=== PATIENT | male | born 1965 | race Caucasian/White ===

== ENCOUNTER 2018-06-09 16:12 | Inpatient (IN) ==
[2018-06-09] MEDS ORDERED: Isovue-370 500 ML INFUS..BTL IV ONE (16:17)
--- NOTE | 2018-06-09 16:17 | Urgent Care Visit Notes ---
Disposition Clinical Impression: Atelectasis, right, Pneumonia Disposition: Still a Patient Condition: Fair Referrals: Aleena Robles CNP [Primary Care Provider] - History of Present Illness - General Stated Complaint: SHUBHAM Time Seen by Provider: 06/09/18 16:15 - History of Present Illness HPI Narrative: 52 YO M complaining of right sided chest pain with history of abdominal surgery 3 days ago. He rates the pain as a 10/10 located in the right thorax and focal. He is SOB with pleuritic chest pain. Does not have lower extremity pain or asymmetrical swelling. Feels hot. Pt complaint: chest pain Onset (ago): hour(s) Duration: constant Onset: during rest, during exertion Pain Location: right chest Severity: severe Severity scale (1-10): 10 Quality: sharp Pain Radiation: none Improves with: nothing Worsens with: inspiration, movement Context: recent surgery - Related Data Previous Rx's Medication Instructions Recorded predniSONE [PredniSONE] 40 mg PO DAILY 4 Days tablet 09/15/16 Allergies Allergy/AdvReac Type Severity Reaction Status Date / Time No Known Allergies Allergy Verified 06/09/18 16:26 Chest Pain PMH - Past Medical History Medical history: Reports: COPD, hyperlipidemia, hypertension Psychiatric history: Reports: anxiety - Social History Smoking Status: Current every day smoker Alcohol use: Reports: none Drug use: Reports: none, marijuana Physical Exam - Chest Chest inspection: Present: normal inspection - Respiratory Respiratory exam: Present: other (Right sided d) - Expanded Respiratory Exam Location: decreased breath sounds: Right - Cardiovascular Cardiovascular exam: Present: regular rate, normal rhythm, normal heart sounds - Abdominal Exam Abdominal exam: Present: soft - Expanded Lower Extremity Exam Upper leg exam: Absent: tenderness, swelling Lower leg exam: Present: dislocation. Absent: tenderness, swelling - Neurological Exam Neurological exam: Present: alert, oriented X3 - Psychiatric Psychiatric exam: Present: normal affect, normal mood Chest Pain - Lab Data Result diagrams: 06/09/18 16:29 06/09/18 16:29 - EKG Data EKG shows normal: sinus rhythm, axis, intervals, QRS complexes, ST-T waves Course Course Narrative: 52 YO M presenting with R sided chest pain, SOB, temp 100, and recent surgery. Concerned for PE - immediate CTA awaiting results. Patient in 10/10 pain give 50 fentanyl. - Reevaluation(s) Reevaluation #1: Patient still in pain, CTA still pending, will give patient additional 50 fentanyl. Reevaluation #2: Chest CT returned ateletasis vs pneumonia in R lower lobe. Patient in a lot of pain, elevated WBCs, lung pathology, elevated temperature. Will consult hospitalists to admit. Reevaluation #3: Hospitalist has not called back, will sign out to night team to continue trying to readmit.
--- NOTE | 2018-06-09 16:19 | Emergency Department Note ---
Disposition Clinical Impression: Atelectasis, right, Pneumonia Disposition: Still a Patient Condition: Fair Referrals: Aleena Robles CNP [Primary Care Provider] - General Adult HPI - General Stated complaint: SHUBHAM Time Seen by Provider: 06/09/18 16:15 - Related Data Allergies Allergy/AdvReac Type Severity Reaction Status Date / Time No Known Allergies Allergy Verified 06/09/18 16:26 Past Medical History - Past Medical History Medical history: Reports: COPD, hyperlipidemia, hypertension Psychiatric history: Reports: anxiety - Social History Smoking Status: Current every day smoker Smokeless Tobacco Status: No Alcohol use: Reports: none Drug use: Reports: none, marijuana Course Vital Signs Temperature 100.1 F H 06/09/18 16:22 Pulse Rate 73 06/09/18 16:22 Respiratory Rate 16 06/09/18 16:22 Blood Pressure 123/68 06/09/18 16:22 O2 Sat by Pulse Oximetry 92 06/09/18 16:22 Temperature 100.1 F H 06/09/18 16:22 Pulse Rate 73 06/09/18 16:22 Respiratory Rate 16 06/09/18 16:22 Blood Pressure 123/68 06/09/18 16:22 O2 Sat by Pulse Oximetry 92 06/09/18 16:22 Oxygen Delivery Oxygen Delivery Nasal Cannula Medical Decision Making - Lab Data Result diagrams: 06/09/18 16:29 06/09/18 16:29 Lab Results 06/09/18 06/09/18 06/09/18 Range/Units 16:29 16:29 16:29 WBC 20.9 H (4.3-11.1) K/mcL RBC 4.42 (4.19-5.50) M/mcL Hgb 13.5 (12.9-16.9) g/dL Hct 40.0 (37.5-50.1) % MCV 90.5 (83.0-100.0) fL MCH 30.5 (28.0-33.3) pg MCHC 33.8 (31.6-35.5) g/dL RDW 13.3 (11.5-14.5) % Plt Count 268 (140-400) K/mcL MPV 8.7 L (9.4-12.4) fL Immature Gran % 0.5 (0-4) % Seg Neutrophils % 85.0 % Lymphocytes % 6.7 % Monocytes % 6.4 % Eosinophils % 1.2 % Basophils % 0.2 % Neutrophils # 17.8 H (1.6-8.9) K/mcL Lymphocytes # 1.4 (0.6-4.6) K/mcL Monocytes # 1.3 (0.0-1.3) K/mcL Eosinophils # 0.3 (0.0-0.6) K/mcL Basophils # 0.1 (0.0-0.2) K/mcL PT 14.1 H (9.4-12.1) Seconds INR 1.3 Heparin Anti-Xa, Unfract (0.30-0.70) IU/mL Sodium 136 (136-145) mEq/L Potassium 4.1 (3.5-5.1) mEq/L Chloride 104 (98-107) mEq/L Carbon Dioxide 24 (23-29) mEq/L BUN 17 (6-20) mg/dL Creatinine 0.81 (0.70-1.30) mg/dL Est GFR ( Amer) > 60 (> 60) Est GFR (Non-Af Amer) > 60 (> 60) BUN/Creatinine Ratio 21 (6-26) Glucose 100 (70-105) mg/dL Calculated Osmolality 284 (280-300) Calcium 9.5 (8.6-10.3) mg/dL Total Bilirubin 0.7 (0.3-1.0) mg/dL AST 15 (13-39) Units/L ALT 21 (7-52) Units/L Alkaline Phosphatase 97 (34-104) Units/L Troponin I < 0.03 (< 0.04) ng/mL B-Natriuretic Peptide (Less than 100) pg/mL Serum Total Protein 6.7 (6.4-8.9) g/dL Albumin 3.9 (3.5-5.7) g/dL Globulin 2.8 (2.4-3.5) g/dL Albumin/Globulin Ratio 1.4 (1.1-2.2) 06/09/18 06/09/18 Range/Units 16:29 16:29 WBC (4.3-11.1) K/mcL RBC (4.19-5.50) M/mcL Hgb (12.9-16.9) g/dL Hct (37.5-50.1) % MCV (83.0-100.0) fL MCH (28.0-33.3) pg MCHC (31.6-35.5) g/dL RDW (11.5-14.5) % Plt Count (140-400) K/mcL MPV (9.4-12.4) fL Immature Gran % (0-4) % Seg Neutrophils % % Lymphocytes % % Monocytes % % Eosinophils % % Basophils % % Neutrophils # (1.6-8.9) K/mcL Lymphocytes # (0.6-4.6) K/mcL Monocytes # (0.0-1.3) K/mcL Eosinophils # (0.0-0.6) K/mcL Basophils # (0.0-0.2) K/mcL PT (9.4-12.1) Seconds INR Heparin Anti-Xa, Unfract 0.06 L (0.30-0.70) IU/mL Sodium (136-145) mEq/L Potassium (3.5-5.1) mEq/L Chloride (98-107) mEq/L Carbon Dioxide (23-29) mEq/L BUN (6-20) mg/dL Creatinine (0.70-1.30) mg/dL Est GFR ( Amer) (> 60) Est GFR (Non-Af Amer) (> 60) BUN/Creatinine Ratio (6-26) Glucose (70-105) mg/dL Calculated Osmolality (280-300) Calcium (8.6-10.3) mg/dL Total Bilirubin (0.3-1.0) mg/dL AST (13-39) Units/L ALT (7-52) Units/L Alkaline Phosphatase (34-104) Units/L Troponin I (< 0.04) ng/mL B-Natriuretic Peptide 75 (Less than 100) pg/mL Serum Total Protein (6.4-8.9) g/dL Albumin (3.5-5.7) g/dL Globulin (2.4-3.5) g/dL Albumin/Globulin Ratio (1.1-2.2) Attestation Statement - Attestation Attestation: I examined this patient and my medical decision-making was reviewed with the Resident Physician. I agree with the documented findings, disposition and treatment plan as described except to the extent set forth below. [id number] time provided Patient arrives by EMS complaining of dyspnea and some right-sided chest discomfort. He is oxygen dependent at night. Recently underwent surgical repair of a bowel obstruction secondary to hernia. Patient appears mildly dyspneic on exam but otherwise in no acute distress. He was evaluated in conjunction with the resident physician Dr. Camilo 18:29: Patient has a leukocytosis of 20,000. This is compared to a leukocytosis of 19,000 about a week ago. His temperatures 100.1. CT chest shows atelectasis versus possible pneumonia to right lung base. The patient continues to be symptomatic so I favor admitting the patient for broad-spectrum antibiotics
[2018-06-09] MEDS ORDERED: *HR* FentaNYL (PF) 100 MCG/2 ML VIAL IVP ONE ×4 (16:27→22:23)
[2018-06-09 16:45] LABS: Basophils # 0.1 K/mcL (0.0-0.2); Basophils % 0.2 %; Eosinophils # 0.3 K/mcL (0.0-0.6); Eosinophils % 1.2 %; Hemoglobin 13.5 g/dL (12.9-16.9); Immature Granulocytes % 0.5 % (0-4); Lymphocytes # 1.4 K/mcL (0.6-4.6); Lymphocytes % 6.7 %; Mean Corpuscular HGB Conc 33.8 g/dL (31.6-35.5); Mean Corpuscular Hemoglobin 30.5 pg (28.0-33.3); Mean Corpuscular Volume 90.5 fL (83.0-100.0); Mean Platelet Volume 8.7 fL (9.4-12.4); Monocytes # 1.3 K/mcL (0.0-1.3); Monocytes % 6.4 %; Neutrophils # 17.8 K/mcL (1.6-8.9); Platelet Count 268 K/mcL (140-400); Red Blood Count 4.42 M/mcL (4.19-5.50); Red Cell Distribution Width 13.3 % (11.5-14.5)
[2018-06-09 16:49] LABS: INR 1.3; Prothrombin Time 14.1 Seconds (9.4-12.1)
[2018-06-09 17:11] LABS: Alanine Aminotransferase 21 Units/L (7-52); Albumin 3.9 g/dL (3.5-5.7); Albumin/Globulin Ratio 1.4 (1.1-2.2); Alkaline Phosphatase 97 Units/L (34-104); Aspartate Amino Transferase 15 Units/L (13-39); BUN/Creatinine Ratio 21 (6-26); Bilirubin,Total 0.7 mg/dL (0.3-1.0); Blood Urea Nitrogen 17 mg/dL (6-20); Calcium 9.5 mg/dL (8.6-10.3); Carbon Dioxide 24 mEq/L (23-29); Chloride 104 mEq/L (98-107); Globulin 2.8 g/dL (2.4-3.5); Glucose 100 mg/dL (70-105); Osmolality,Calculated 284 (280-300); Potassium 4.1 mEq/L (3.5-5.1); Sodium 136 mEq/L (136-145); Total Protein 6.7 g/dL (6.4-8.9); Troponin I < 0.03 ng/mL (< 0.04); eGFR For Non-African Americans > 60 (> 60)
[2018-06-09] MEDS ORDERED: Piperacillin/Tazobactam 3.375 GM in 0.9 % Sodium Chloride Mini Bag 100 ML IVPB ONE (18:30)
[2018-06-09] MEDS ORDERED: Levofloxacin 500 MG/100 ML 500 MG/100 ML BAG IVPB ONE (18:30)
[2018-06-09] MEDS ORDERED: *HR* OxyCODONE/APAP 5/325 TABLET PO ONE (19:06)
--- NOTE | 2018-06-09 20:04 | Emergency Department Note ---
Disposition Clinical Impression: Atelectasis, right Pneumonia Qualifiers: Pneumonia type: due to unspecified organism Laterality: right Lung location: lower lobe of lung Qualified Code(s): J18.1 - Lobar pneumonia, unspecified organism Disposition: Admitted As Inpatient Condition: Fair Time of Disposition: 20:07 General Adult HPI - General Chief complaint: ED Shortness of Breath/Dyspnea Stated complaint: SHUBHAM Time Seen by Provider: 06/09/18 16:15 Source: EMS Mode of arrival: ambulatory Limitations: no limitations Nursing Notes Reviewed: Yes Vital Signs Reviewed: Yes - History of Present Illness Pain Scale: 10 - Related Data Home Medications Medication Instructions Recorded Confirmed Albuterol Sulfate [Ventolin Hfa] 2 puff IH Q4H PRN 06/09/18 06/09/18 Atenolol 100 mg PO DAILY 06/09/18 06/09/18 Atorvastatin Calcium 80 mg PO HS 06/09/18 06/09/18 Docusate Sodium [Stool Softener] 100 mg PO DAILY PRN 06/09/18 06/09/18 Fluticasone/Vilanterol [Breo 1 puff IH DAILY 06/09/18 06/09/18 Ellipta 100-25 Mcg INH] Gabapentin [Neurontin] 100 mg PO TID 06/09/18 06/09/18 Metformin HCl 500 mg PO BID 06/09/18 06/09/18 Nitroglycerin [Nitrostat] 0.4 mg SL Q5MIN PRN 06/09/18 06/09/18 OxyCODONE Immed Rel [Roxicodone 10 10 mg PO Q6H PRN 06/09/18 06/09/18 MG] PARoxetine HCl [Paroxetine HCl] 40 mg PO DAILY 06/09/18 06/09/18 traZODone [TraZODone] 50 mg PO HS 06/09/18 06/09/18 Allergies Allergy/AdvReac Type Severity Reaction Status Date / Time No Known Allergies Allergy Verified 06/09/18 16:26 Past Medical History - Past Medical History Medical history: Reports: COPD, hyperlipidemia, hypertension Psychiatric history: Reports: anxiety - Social History Smoking Status: Current every day smoker Smokeless Tobacco Status: No Alcohol use: Reports: none Drug use: Reports: none, marijuana Physical Exam - General General appearance: alert Course Course Narrative: Patient signed out to me by the team physician Dr. Mcleod. Patient pending admission for hospital-acquired pneumonia after having a umbilical incarcerated hernia with bowel obstruction surgery done at [facility] one week ago. Upon examination, he does have left-sided base crackles in the lung and is very symptomatic with pleurisy. Patient was started on vancomycin, Zosyn, Levaquin. Patient's vital signs are stable. I discussed with the hospitalist Dr. Aviles who has accepted patient for admission. He would like a set of blood cultures ordered. Vital Signs Temperature 100.1 F H 06/09/18 16:22 Pulse Rate 73 06/09/18 16:22 Respiratory Rate 16 06/09/18 16:22 Blood Pressure 123/68 06/09/18 16:22 O2 Sat by Pulse Oximetry 92 06/09/18 16:22 Temperature 100.1 F H 06/09/18 16:22 Pulse Rate 68 06/09/18 22:48 Respiratory Rate 16 06/09/18 22:48 Blood Pressure 135/69 06/09/18 22:48 O2 Sat by Pulse Oximetry 90 06/09/18 22:48 Oxygen Delivery Oxygen Delivery Nasal Cannula Medical Decision Making - Medical Records Medical records reviewed: Yes I reviewed the patient's medical records. - Lab Data Lab results reviewed: Yes I reviewed the patient's lab results. Result diagrams: 06/09/18 16:29 06/09/18 16:29 Lab Results 06/09/18 06/09/18 06/09/18 Range/Units 16:29 16:29 16:29 WBC 20.9 H (4.3-11.1) K/mcL RBC 4.42 (4.19-5.50) M/mcL Hgb 13.5 (12.9-16.9) g/dL Hct 40.0 (37.5-50.1) % MCV 90.5 (83.0-100.0) fL MCH 30.5 (28.0-33.3) pg MCHC 33.8 (31.6-35.5) g/dL RDW 13.3 (11.5-14.5) % Plt Count 268 (140-400) K/mcL MPV 8.7 L (9.4-12.4) fL Immature Gran % 0.5 (0-4) % Seg Neutrophils % 85.0 % Lymphocytes % 6.7 % Monocytes % 6.4 % Eosinophils % 1.2 % Basophils % 0.2 % Neutrophils # 17.8 H (1.6-8.9) K/mcL Lymphocytes # 1.4 (0.6-4.6) K/mcL Monocytes # 1.3 (0.0-1.3) K/mcL Eosinophils # 0.3 (0.0-0.6) K/mcL Basophils # 0.1 (0.0-0.2) K/mcL PT 14.1 H (9.4-12.1) Seconds INR 1.3 Heparin Anti-Xa, Unfract (0.30-0.70) IU/mL Sodium 136 (136-145) mEq/L Potassium 4.1 (3.5-5.1) mEq/L Chloride 104 (98-107) mEq/L Carbon Dioxide 24 (23-29) mEq/L BUN 17 (6-20) mg/dL Creatinine 0.81 (0.70-1.30) mg/dL Est GFR ( Amer) > 60 (> 60) Est GFR (Non-Af Amer) > 60 (> 60) BUN/Creatinine Ratio 21 (6-26) Glucose 100 (70-105) mg/dL Calculated Osmolality 284 (280-300) Calcium 9.5 (8.6-10.3) mg/dL Total Bilirubin 0.7 (0.3-1.0) mg/dL AST 15 (13-39) Units/L ALT 21 (7-52) Units/L Alkaline Phosphatase 97 (34-104) Units/L Troponin I < 0.03 (< 0.04) ng/mL B-Natriuretic Peptide (Less than 100) pg/mL Serum Total Protein 6.7 (6.4-8.9) g/dL Albumin 3.9 (3.5-5.7) g/dL Globulin 2.8 (2.4-3.5) g/dL Albumin/Globulin Ratio 1.4 (1.1-2.2) 06/09/18 06/09/18 Range/Units 16:29 16:29 WBC (4.3-11.1) K/mcL RBC (4.19-5.50) M/mcL Hgb (12.9-16.9) g/dL Hct (37.5-50.1) % MCV (83.0-100.0) fL MCH (28.0-33.3) pg MCHC (31.6-35.5) g/dL RDW (11.5-14.5) % Plt Count (140-400) K/mcL MPV (9.4-12.4) fL Immature Gran % (0-4) % Seg Neutrophils % % Lymphocytes % % Monocytes % % Eosinophils % % Basophils % % Neutrophils # (1.6-8.9) K/mcL Lymphocytes # (0.6-4.6) K/mcL Monocytes # (0.0-1.3) K/mcL Eosinophils # (0.0-0.6) K/mcL Basophils # (0.0-0.2) K/mcL PT (9.4-12.1) Seconds INR Heparin Anti-Xa, Unfract 0.06 L (0.30-0.70) IU/mL Sodium (136-145) mEq/L Potassium (3.5-5.1) mEq/L Chloride (98-107) mEq/L Carbon Dioxide (23-29) mEq/L BUN (6-20) mg/dL Creatinine (0.70-1.30) mg/dL Est GFR ( Amer) (> 60) Est GFR (Non-Af Amer) (> 60) BUN/Creatinine Ratio (6-26) Glucose (70-105) mg/dL Calculated Osmolality (280-300) Calcium (8.6-10.3) mg/dL Total Bilirubin (0.3-1.0) mg/dL AST (13-39) Units/L ALT (7-52) Units/L Alkaline Phosphatase (34-104) Units/L Troponin I (< 0.04) ng/mL B-Natriuretic Peptide 75 (Less than 100) pg/mL Serum Total Protein (6.4-8.9) g/dL Albumin (3.5-5.7) g/dL Globulin (2.4-3.5) g/dL Albumin/Globulin Ratio (1.1-2.2) - Radiology Data Radiology results reviewed: Yes I reviewed the patient's radiology results. Chest CTA 06/09/18 16:17 IMPRESSION: No central or segmental pulmonary embolus. Small right pleural effusion. Associated right lower lobe opacity likely represents atelectasis and less likely pneumonia. D/ / 06/09/2018 18:24:13 Milad Arnold MD / shona Interpreting Provider: Milad Arnold MD Attestation Statement - Attestation Attestation: I, Reji Hanna, examined this patient and my medical decision-making was reviewed with the SOFTWARE TEST AND VALIDATION ENGINEER/PA/Advanced Practice Nurse/Resident Physician. I agree with the documented findings, disposition and treatment plan as described except to the extent set forth below. 52-year-old male received in sign out at the start of my shift presents emergency Department with concerns of difficulty in breathing. Patient had an incarcerated umbilical hernia with small bowel obstruction repaired within the past 5 days at [facility]. Today he presents with pain to the left lower chest and pain with breathing. CTA of the chest was negative for PE. Patient had temp of 100.2 orally on reevaluation in the emergency department. No abdominal pain on my reexamination. Surgical site was clean without surrounding erythema and did not have purulent discharge. Patient will be admitted to the hospital for further care and evaluation and treatment of possible healthcare associated pneumonia.
[2018-06-09] MEDS ORDERED: Acetaminophen 325 MG TABLET PO PRN (21:31)
[2018-06-09] MEDS ORDERED: Naloxone 0.4 MG/ML INJ IVP PRN ×3 (21:31→23:23)
--- NOTE | 2018-06-09 21:58 | Internal Med History&Physical ---
Date of Encounter: 06/09/18 Internal Medicine - H&P: HPI History of present illness: Mr. Bailon is a 52 year old male Past Med Surg Social Fam HX - Past Medical History Medical history: COPD, hyperlipidemia, hypertension Additional medical history: emphysema Psychiatric history: anxiety - Past Surgical History Additional surgical history: back surgery - Social History Smoking Status: Current every day smoker Smokeless Tobacco Status: No Alcohol use: none Drug use: none, marijuana Internal Medicine - H&P: Meds Albuterol Sulfate [Ventolin Hfa] 2 puff IH Q4H PRN 06/09/18 [History] Atenolol 100 mg PO DAILY 06/09/18 [History] Atorvastatin Calcium 80 mg PO HS 06/09/18 [History] Docusate Sodium [Stool Softener] 100 mg PO DAILY PRN 06/09/18 [History] Fluticasone/Vilanterol [Breo Ellipta 100-25 Mcg INH] 1 puff IH DAILY 06/09/18 [ History] Gabapentin [Neurontin] 100 mg PO TID 06/09/18 [History] Metformin HCl 500 mg PO BID 06/09/18 [History] Nitroglycerin [Nitrostat] 0.4 mg SL Q5MIN PRN 06/09/18 [History] OxyCODONE Immed Rel [Roxicodone 10 MG] 10 mg PO Q6H PRN 06/09/18 [History] PARoxetine HCl [Paroxetine HCl] 40 mg PO DAILY 06/09/18 [History] traZODone [TraZODone] 50 mg PO HS 06/09/18 [History] 3 Allergy/AdvReac Type Severity Reaction Status Date / Time No Known Allergies Allergy Verified 06/09/18 16:26 All Systems PM: A 10-system review of systems was performed and is negative for pertinent findings except as documented above in the HPI. - Constitutional Vitals: Temp Pulse Resp BP Pulse Ox 100.1 F H 71 16 134/69 93 06/09/18 16:22 06/09/18 21:35 06/09/18 21:35 06/09/18 21:35 06/09/18 21:35 Internal Med - H&P Results - Labs CBC & Chem 7: 06/09/18 16:29 06/09/18 16:29 Labs: Short CBC 06/09/18 Range/Units 16:29 WBC 20.9 H (4.3-11.1) K/mcL Hgb 13.5 (12.9-16.9) g/dL Hct 40.0 (37.5-50.1) % Plt Count 268 (140-400) K/mcL Neutrophils # 17.8 H (1.6-8.9) K/mcL BMP 06/09/18 16:29 Sodium 136 Potassium 4.1 Chloride 104 Carbon Dioxide 24 BUN 17 Creatinine 0.81 Glucose 100 Calcium 9.5 Cardiac Enzymes 06/09/18 Range/Units 16:29 Troponin I < 0.03 (< 0.04) ng/mL Liver Function 06/09/18 Range/Units 16:29 Total Bilirubin 0.7 (0.3-1.0) mg/dL AST 15 (13-39) Units/L ALT 21 (7-52) Units/L Alkaline Phosphatase 97 (34-104) Units/L Albumin 3.9 (3.5-5.7) g/dL - Impressions ITS Impressions Chest CTA 06/09/18 16:17 IMPRESSION: No central or segmental pulmonary embolus. Small right pleural effusion. Associated right lower lobe opacity likely represents atelectasis and less likely pneumonia. D/ / 06/09/2018 18:24:13 Milad Arnold MD / shona Interpreting Provider: Milad Arnold MD - Time Spent With Patient Total time spent is greater than 50% in coordination of care (as documented) at patient's floor/unit and/or counseling patient:
[2018-06-09] MEDS ORDERED: traMADol 50 MG TABLET PO PRN (22:46)
[2018-06-09] MEDS ORDERED: *HR* OxyCODONE Immed Rel 5 MG TABLET PO PRN (22:46)
[2018-06-09] MEDS: 0.9 % Sodium Chloride 1,000 ML IVC SCH (22:58)
[2018-06-09] MEDS ORDERED: Nitroglycerin 0.4 MG TAB.SUBL SL PRN (23:19)
[2018-06-09] MEDS ORDERED: Ipratropium/Albuterol Neb 3 ML IH PRN (23:20)
--- NOTE | 2018-06-09 23:22 | Internal Med History&Physical ---
<Katharine Smith - Last Filed: 06/10/18 02:12> Date of Encounter: 06/10/18 Time of Encounter: 23:17 Internal Medicine - H&P: HPI Chief complaint: chest pain Admitted From: Home Plans for Post Hospital Care: Home History of present illness: Mr. Bailon is a 52 year old male hx of COPD and CAD who presented to ED for right sided chest pain around lower ribs. Sudden onset at 3pm while at rest of sharp pain worse with breathing . His cough is at baseline but increased mucus production and chest congestion. He has increased shortness of breath with associated symptoms of fever feeling and diaphoresis but no dizziness, nausea, arm or neck radiation. He had numb and tingling feeling right arm that has resolved. Ine ED his vitals stable, WBC 20.9 with CTA that did not show a PE but a right lower lobe opacity with small effusion possibly pneumonia. He received several doses of fentanyl but continues to complain of severe pain and refuses to answer any of my questions until receives another dose. EKG no acute changes with negative troponin and normal BNP 75. He was recently hospitalized at [facility] for SBO and incarcerated hernia - per patent they removed part of bowel and fixed hernia. He denies increase to cough or shortness of breath when discharged on 05-03-18 with wound care follow up yesterday were there was little concern for infection and wound vac was removed. His mother is very anxious that we will give him an infection in wound. He admits to marijuana use 1-2x per week with a bong and greater than 80 prk yr tobacco but denies alcohol or illicit substance. PMHx included HARJEET with CPAP adherence, HLD, HTN, anxiety , pre-DM and CAD with last LHC over 5 years ago showing stenosis that was not eligible to stent. FM hx mother iwth [place] over age of 50. He used to take lasix for pedal edema but has not had it in last year and has never been told that he has CHF. Past Med Surg Social Fam HX - Past Medical History Medical history: COPD, hyperlipidemia, hypertension Additional medical history: emphysema Psychiatric history: anxiety - Past Surgical History Additional surgical history: back surgery - Social History Smoking Status: Current every day smoker Smokeless Tobacco Status: No Alcohol use: none Drug use: none, marijuana Internal Medicine - H&P: Meds Albuterol Sulfate [Ventolin Hfa] 2 puff IH Q4H PRN 06/09/18 [History] Atenolol 100 mg PO DAILY 06/09/18 [History] Atorvastatin Calcium 80 mg PO HS 06/09/18 [History] Docusate Sodium [Stool Softener] 100 mg PO DAILY PRN 06/09/18 [History] Fluticasone/Vilanterol [Breo Ellipta 100-25 Mcg INH] 1 puff IH DAILY 06/09/18 [ History] Gabapentin [Neurontin] 100 mg PO TID 06/09/18 [History] Metformin HCl 500 mg PO BID 06/09/18 [History] Nitroglycerin [Nitrostat] 0.4 mg SL Q5MIN PRN 06/09/18 [History] OxyCODONE Immed Rel [Roxicodone 10 MG] 10 mg PO Q6H PRN 06/09/18 [History] PARoxetine HCl [Paroxetine HCl] 40 mg PO DAILY 06/09/18 [History] traZODone [TraZODone] 50 mg PO HS 06/09/18 [History] Furosemide [Lasix] 20 mg PO DAILY 7 Days #7 vial 06/13/18 [Rx] Levofloxacin [Levaquin] 750 mg PO DAILY 3 Days #3 tablet 06/13/18 [Rx] Nicotine Patch [Nicoderm] 21 mg TD DAILY 30 Days #30 patch.td24 06/13/18 [Rx] 3 Allergy/AdvReac Type Severity Reaction Status Date / Time No Known Allergies Allergy Verified 06/09/18 16:26 All Systems PM: A 10-system review of systems was performed and is negative for pertinent findings except as documented above in the HPI. - Constitutional Constitutional: chills, fever(s) - EENT Eyes: no blurry vision, no loss of vision - Cardiovascular Cardiovascular ROS IM: dyspnea, no lightheadedness, no syncope - Respiratory Respiratory: cough, dyspnea on exertion, wheezing, pain on inspiration, chest congestion, excessive phlegm production - Gastrointestinal Gastrointestinal: no constipation, no cramping, no diarrhea - Genitourinary Genitourinary ROS male: no dysuria, no hematuria, no urinary frequency - Musculoskeletal Musculoskeletal ROS IM: numbness, tingling, no arthralgias, no joint swelling, no muscle weakness - Neurological Neurological ROS: headache(s), tingling, no dizziness, no weakness - Psychiatric Psychiatric: anxiety - Constitutional Vitals: Temp Pulse Resp BP Pulse Ox 100.1 F H 68 16 135/69 90 06/09/18 16:22 06/09/18 22:48 06/09/18 22:48 06/09/18 22:48 06/09/18 22:48 General appearance: Present: mild distress, A&O X 3, obese, answers questions appropriately. Absent: cooperative Exam: he appears to be in pain with every movement and refuses to answer questions untill given more medication - Head Head exam: Present: atraumatic, normocephalic - ENT ENT exam: Present: mucous membranes moist, normal oropharynx - Respiratory Respiratory exam: Present: decreased breath sounds, wheezes. Absent: rales Additional comments: mild wheeze and some decrease sound in lower lobes but poor patient effort due to pain - Cardiovascular Cardiovascular exam: Present: RRR. Absent: gallop, rubs - GI/Abdominal GI/Abdominal exam: Present: normal bowel sounds, soft. Absent: guarding, mass, tenderness Additional comments: Surgical site is wound about 3 x 2 inches with depth of 1 inch with clear margins filled gauzse under which there is healthy red pink skin and no discharge, blood or smell. There is no increased warmth or erythema around wound. - Extremities Exam Extremities exam: Present: warm, radial pulses palpable and symmetrical. Absent : pedal edema, tenderness - Psychiatric Psychiatric exam: Present: agitated, anxious. Absent: manic - Skin Skin exam: Present: diaphoretic. Absent: erythema, excoriation Internal Med - H&P Results - Labs CBC & Chem 7: 06/10/18 00:50 06/10/18 00:50 Labs: Short CBC 06/09/18 Range/Units 16:29 WBC 20.9 H (4.3-11.1) K/mcL Hgb 13.5 (12.9-16.9) g/dL Hct 40.0 (37.5-50.1) % Plt Count 268 (140-400) K/mcL Neutrophils # 17.8 H (1.6-8.9) K/mcL BMP 06/09/18 16:29 Sodium 136 Potassium 4.1 Chloride 104 Carbon Dioxide 24 BUN 17 Creatinine 0.81 Glucose 100 Calcium 9.5 Cardiac Enzymes 06/09/18 Range/Units 16:29 Troponin I < 0.03 (< 0.04) ng/mL Liver Function 06/09/18 Range/Units 16:29 Total Bilirubin 0.7 (0.3-1.0) mg/dL AST 15 (13-39) Units/L ALT 21 (7-52) Units/L Alkaline Phosphatase 97 (34-104) Units/L Albumin 3.9 (3.5-5.7) g/dL - Impressions ITS Impressions Chest CTA 06/09/18 16:17 IMPRESSION: No central or segmental pulmonary embolus. Small right pleural effusion. Associated right lower lobe opacity likely represents atelectasis and less likely pneumonia. D/ / 06/09/2018 18:24:13 Milad Arnold MD / shona Interpreting Provider: Milad Arnold MD - Assessment and plan (1) Pneumonia Status: Suspected Assessment and plan: recent hospitalization with CTA showed right lower lobe opacity. Afebrile and vitals so not meet SIRs criteria - continue vanc and zosyn - order procalcitonin and lactic acid - antigens : legaionella and strep pnuemo - already collected blood cultures - incentive spirometer Qualifiers: Pneumonia type: due to unspecified organism Laterality: right Lung location: lower lobe of lung Qualified Code(s): J18.1 - Lobar pneumonia, unspecified organism (2) Chest pain Status: Acute Assessment and plan: Unlikely to be ACS given atypical presentation and EKG no acute changes with negative troponin and normal BNP 75, but given multiple risk factors: - trend troponins - oxycodone 10mg PRN q 6hrs is home dose since surgery, add percocet 5 prn 6qhrs Qualifiers: Chest pain type: other chest pain Qualified Code(s): R07.89 - Other chest pain; R07.8 - Other chest pain (3) COPD (chronic obstructive pulmonary disease) Status: Chronic Assessment and plan: While many of his symptoms may be a COPD exacerbation, PNA better explains his severe pleurtic pain -duenebs q6 scheduled and q4 prn Qualifiers: COPD type: COPD with acute lower respiratory infection Qualified Code(s): J44.0 - Chronic obstructive pulmonary disease with acute lower respiratory infection (4) Prediabetes Status: Chronic Assessment and plan: hold metformin and start insulin SS (5) Migraine Status: Chronic Assessment and plan: continue home dose 100mg sumatriptin PRN Qualifiers: Migraine type: unspecified Qualified Code(s): G43.909 - Migraine, unspecified, not intractable, without status migrainosus (6) Anxiety Status: Chronic Assessment and plan: He is very anxious about health and family supports belief that this hospital with give him an infection. - hydroxyzine 500 mg tid for anxiety - continue home Paxil (7) Wound dehiscence, surgical Status: Acute Assessment and plan: Wound appeared healthy but patietn has a lot of anxiety regarding infection - wound care nurse consult Qualifiers: Encounter type: subsequent encounter Qualified Code(s): T81.31XD - Disruption of external operation (surgical) wound, not elsewhere classified, subsequent encounter (8) DVT prophylaxis Status: Acute Assessment and plan: heparin SQ - Time Spent With Patient Total time spent is greater than 50% in coordination of care (as documented) at patient's floor/unit and/or counseling patient: Greater than 35 minutes <Bertha Felix - Last Filed: 06/14/18 11:11> Date of Encounter: 06/10/18 Internal Medicine - H&P: HPI History of present illness: Mr. Bailon is a 52 year old male All Systems PM: A 10-system review of systems was performed and is negative for pertinent findings except as documented above in the HPI. - Constitutional Vitals: Temp Pulse Resp BP Pulse Ox 97.9 F 77 16 147/83 88 06/13/18 07:16 06/13/18 07:16 06/13/18 10:40 06/13/18 07:16 06/13/18 10:40 Internal Med - H&P Results - Labs CBC & Chem 7: 06/13/18 04:35 06/13/18 04:35 - Impressions ITS Impressions Chest X-Ray 06/12/18 14:48 IMPRESSION: Moderate right effusion and right lower lobe atelectatic changes. Minimal left lower lobe atelectatic changes. Cardiomegaly. D/ /12/2018 18:05:14 Meche Sanchez MD / [email or web address] Interpreting Provider: Meche Sanchez MD - Assessment and plan (1) Pneumonia Status: Suspected Qualifiers: Pneumonia type: due to unspecified organism Laterality: right Lung location: lower lobe of lung Qualified Code(s): J18.1 - Lobar pneumonia, unspecified organism (2) Chest pain Status: Acute Qualifiers: Chest pain type: other chest pain Qualified Code(s): R07.89 - Other chest pain; R07.8 - Other chest pain (3) COPD (chronic obstructive pulmonary disease) Status: Chronic Qualifiers: COPD type: COPD with acute lower respiratory infection Qualified Code(s): J44.0 - Chronic obstructive pulmonary disease with acute lower respiratory infection (4) Migraine Status: Chronic Qualifiers: Migraine type: unspecified Intractability: not intractable (5) DVT prophylaxis Status: Acute (6) Wound dehiscence, surgical Status: Acute Qualifiers: Encounter type: subsequent encounter Qualified Code(s): T81.31XD - Disruption of external operation (surgical) wound, not elsewhere classified, subsequent encounter (7) Tobacco dependence Status: Chronic (8) Acute and chronic respiratory failure with hypoxia Status: Resolved - Time Spent With Patient Total time spent is greater than 50% in coordination of care (as documented) at patient's floor/unit and/or counseling patient: - Attending Attestation Patient seen and examined. Case discussed with resident. Suspicion for HCAP given imaging findings associated with pleuritic pain. C/w appropriate Abx coverage for HCAP. Pain regimen.
[2018-06-09] MEDS ORDERED: Dextrose Gel 15 GM/37.5 ML TUBE PO PRN ×2 (23:35)
[2018-06-09] MEDS ORDERED: *HR* Dextrose 50 % in Water (Syg) 50 ML SYRINGE IVP PRN (23:35)
[2018-06-09] MEDS ORDERED: D5% in Water 1,000 ML IVC PRN (23:35)
[2018-06-10] MEDS: Ipratropium/Albuterol Neb 3 ML IH SCH ×5 (00:30→21:43)
[2018-06-10] MEDS ORDERED: hydrOXYzine pamoate 25 MG CAPSULE PO PRN (00:40)
[2018-06-10] MEDS ORDERED: SUMAtriptan succinate 50 MG TABLET PO PRN (00:41)
[2018-06-10] MEDS ORDERED: *HR* OxyCODONE/APAP 5/325 TABLET PO PRN (00:43)
[2018-06-10 01:09] LABS: Basophils % 0.2 %; Hematocrit 40.4 % (37.5-50.1); Hemoglobin 13.7 g/dL (12.9-16.9); Immature Granulocytes % 0.4 % (0-4); Lymphocytes # 1.3 K/mcL (0.6-4.6); Lymphocytes % 5.1 %; Mean Corpuscular HGB Conc 33.9 g/dL (31.6-35.5); Mean Corpuscular Hemoglobin 31.1 pg (28.0-33.3); Mean Corpuscular Volume 91.8 fL (83.0-100.0); Mean Platelet Volume 8.6 fL (9.4-12.4); Monocytes # 1.6 K/mcL (0.0-1.3); Monocytes % 6.3 %; Platelet Count 246 K/mcL (140-400); Red Cell Distribution Width 13.2 % (11.5-14.5)
[2018-06-10 01:14] LABS: Basophils # 0.1 K/mcL (0.0-0.2); Neutrophils # 21.8 K/mcL (1.6-8.9)
[2018-06-10 01:21] LABS: Alanine Aminotransferase 18 Units/L (7-52); Albumin 3.7 g/dL (3.5-5.7); Albumin/Globulin Ratio 1.3 (1.1-2.2); Alkaline Phosphatase 87 Units/L (34-104); Aspartate Amino Transferase 14 Units/L (13-39); BUN/Creatinine Ratio 20 (6-26); Blood Urea Nitrogen 15 mg/dL (6-20); Calcium 8.8 mg/dL (8.6-10.3); Carbon Dioxide 25 mEq/L (23-29); Chloride 104 mEq/L (98-107); Globulin 2.8 g/dL (2.4-3.5); Glucose 127 mg/dL (70-105); Osmolality,Calculated 282 (280-300); Potassium 4.4 mEq/L (3.5-5.1); Sodium 135 mEq/L (136-145); Total Protein 6.5 g/dL (6.4-8.9); eGFR For Non-African Americans > 60 (> 60)
[2018-06-10 01:29] LABS: Platelet Estimate Normal (Normal); Toxic Granulation Present (Not Present)
[2018-06-10] MEDS ORDERED: Ketorolac 30 MG/ML VIAL IVP PRN (02:07)
[2018-06-10] MEDS ORDERED: *HR* FentaNYL PATCH 50 MCG PATCH TD SCH (02:15)
[2018-06-10] MEDS: Insulin LISPRO 300 UNITS/3 ML VIAL SQ SCH ×5 (05:40→21:40)
[2018-06-10] MEDS: *HR* Heparin 5,000 UNIT/ML VIAL SQ SCH ×4 (05:41→20:19)
[2018-06-10] MEDS: 0.9 % Sodium Chloride 1,000 ML IVC SCH (08:14)
[2018-06-10] MEDS: Piperacillin/Tazobactam 3.375 GM in 0.9 % Sodium Chloride Mini Bag 100 ML IVPB SCH ×2 (08:15→15:39)
[2018-06-10] MEDS: Gabapentin 100 MG CAPSULE PO SCH ×3 (08:24→20:16)
--- NOTE | 2018-06-10 09:48 | Internal Med Progress Note ---
Addendum entered and electronically signed by Corwin Porter 06/10/18 13:16: Add to A/P -Tobacco abuse pt is a 2PPD smoker 21mg NRT nicotine patches counseling advised -HTN -pt is on atenolol -BP 145/80 -will consider adding hydralazine if systolic BP>160 Obesity -pt BMI 35.6 -most likely contributing to acute on chronic respiraotry failure Acute on chronic respiratory failure -secondary to pneumonia -pt requiring oxygen while in the hospital, currently on 4L NC and O2 sat 93% -doesn't require home O2 at all times, uses O2 at night if needed Original Note: <Corwin Porter - Last Filed: 06/10/18 11:45> Hospitalist Progress Note - Encounter Date of Encounter: 06/10/18 Time of Encounter: 09:46 - Subjective Interval History: Pt is a 52yo male admitted for right sided chest pain around the ribs. He said it started around 3pm on afternoon while at rest -sharp pain increasing with breathing -cough is at baseline, but some musucs production and chest congestion -no fever/chills -no arm or neck raditation Pt was recently hospitalized at [facility] for SBO and incarcerated hernia. He had a bowel removal and fixed the hernia. Wound vac removed . Today the pt has no complaints other than pain. He says pain meds help the pain. Doesn't c/o SOB or pain with inspiration but does have some "right sided discomfort." Pt has no chest pain, n/v/d, abd pain. He denies any pain around umbilical region where hernia repair was. - Exam Vitals: Temp Pulse Resp BP Pulse Ox 98.4 F 61 18 157/84 93 06/10/18 06:47 06/10/18 06:47 06/10/18 06:47 06/10/18 06:47 06/10/18 06:47 Exam: genral - aox3, nad cardio -rrr s1s2 cta lungs - ctab no wheeze abd - NTND, no rebound or guarding skin - no edema - Assessment and Plan (1) Pneumonia Current Visit: Yes Status: Suspected Assessment and Plan: Pt had recent hospitalization in the last 90 days -CT chest showed right lower lob pneumonia -currently afebrile, doesn't meet SIRS criteria, regular rate -WBC count 24.8 Lactic acid 0.7 Plan: -Zosyn day 1 -d/c Vancomycin -procalcitonin pending -incentibe spiromtry -legionella, strep pneumo cx pending (2) Chest pain Current Visit: Yes Status: Acute Assessment and Plan: Most likely secondary to pneumonia -unlikely ACD, EKG showed no acute changes -negative troponin, BNP 75 Plan: -oxycodone 10mg prn q6hr is home med 2/2 sx -percocet added (3) COPD (chronic obstructive pulmonary disease) Current Visit: Yes Status: Chronic Assessment and Plan: Not in exacerbation -duonebs scheduled -93% O2 on CPAP (4) Migraine Current Visit: Yes Status: Chronic Assessment and Plan: Sumatripin prn (5) DVT prophylaxis Current Visit: Yes Status: Acute Assessment and Plan: sq heparin (6) Wound dehiscence, surgical Current Visit: Yes Status: Acute Assessment and Plan: Wound care consulted - Time Spent with Patient Total time spent is greater than 50% in coordination of care (as documented) at patient's floor/unit and/or counseling patient: less than 15 minutes Plan of Care Discussed with: patient Internal Medicine: Result - Labs CBC & Chem 7: 06/10/18 00:50 06/10/18 00:50 - ABG Interpretation ABG results: PT/INR, D-dimer PT 14.1 Seconds (9.4-12.1) H 06/09/18 16:29 Consult Discharge Plan - Plan Referrals: Aleena Robles, INSURANCE EXECUTIVE [Primary Care Provider] - <Emerald Alexander - Last Filed: 06/10/18 14:25> Hospitalist Progress Note - Encounter Date of Encounter: 06/10/18 - Exam Vitals: Temp Pulse Resp BP Pulse Ox 98.0 F 67 18 169/97 92 06/10/18 13:56 06/10/18 13:56 06/10/18 13:56 06/10/18 13:56 06/10/18 13:56 - Assessment and Plan (1) Pneumonia Current Visit: Yes Status: Suspected (2) Chest pain Current Visit: Yes Status: Acute (3) COPD (chronic obstructive pulmonary disease) Current Visit: Yes Status: Chronic (4) Migraine Current Visit: Yes Status: Chronic (5) DVT prophylaxis Current Visit: Yes Status: Acute (6) Wound dehiscence, surgical Current Visit: Yes Status: Acute - Time Spent with Patient Total time spent is greater than 50% in coordination of care (as documented) at patient's floor/unit and/or counseling patient: Internal Medicine: Result - Labs CBC & Chem 7: 06/10/18 00:50 06/10/18 00:50 - ABG Interpretation ABG results: PT/INR, D-dimer PT 14.1 Seconds (9.4-12.1) H 06/09/18 16:29 - Attending Attestation I examined this patient and my medical decision-making was reviewed with the Resident Physician Dr. Porter. I agree with the documented findings, disposition and treatment plan as described except to the extent set forth below. Mr. Bailon is a 52 y/o M hx of COPD, HARJEET, Morbid obesity, tobacco dependence and CAD admitted here for acute pneumonia. He is still on 4 lit 2.5 lit O Spo2 @ 92. Denied any CP. Still has moderate SOB and SAHNI. Gen: A, A, O x 3 Chest: Diminished BS b/l, mild wheezing, no crackles Heart: S1S2+ RRR a/p 1. Acute PNA 2. Acute on chronic hypoxic resp failure ( does use 2 lit at bed time at home ) 3. COPD 4. Chronic tobacco dependence 5. Tobacco dependence Broad spec abx Zosyn d/c Vanc try to wean him off the O2 may need home O2 eval no need of steroids counseled to quit smoking on nicotine patch <Corwin Porter S - Last Filed: 06/10/18 11:45> (1) Pneumonia Qualifiers: Pneumonia type: due to unspecified organism Laterality: right Lung location : lower lobe of lung Qualified Code(s): J18.1 - Lobar pneumonia, unspecified organism (2) Chest pain Qualifiers: Chest pain type: other chest pain Qualified Code(s): R07.89 - Other chest pain; R07.8 - Other chest pain (3) COPD (chronic obstructive pulmonary disease) Qualifiers: COPD type: COPD with acute lower respiratory infection Qualified Code(s): J44.0 - Chronic obstructive pulmonary disease with acute lower respiratory infection (4) Migraine Qualifiers: Migraine type: unspecified (6) Wound dehiscence, surgical Qualifiers: Encounter type: subsequent encounter Qualified Code(s): T81.31XD - Disruption of external operation (surgical) wound, not elsewhere classified, subsequent encounter <Emerald Alexander - Last Filed: 06/10/18 14:25> (1) Pneumonia Qualifiers: Pneumonia type: due to unspecified organism Laterality: right Lung location : lower lobe of lung Qualified Code(s): J18.1 - Lobar pneumonia, unspecified organism (2) Chest pain Qualifiers: Chest pain type: other chest pain Qualified Code(s): R07.89 - Other chest pain; R07.8 - Other chest pain (3) COPD (chronic obstructive pulmonary disease) Qualifiers: COPD type: COPD with acute lower respiratory infection Qualified Code(s): J44.0 - Chronic obstructive pulmonary disease with acute lower respiratory infection (4) Migraine Qualifiers: Migraine type: unspecified (6) Wound dehiscence, surgical Qualifiers: Encounter type: subsequent encounter Qualified Code(s): T81.31XD - Disruption of external operation (surgical) wound, not elsewhere classified, subsequent encounter
[2018-06-10] MEDS ORDERED: Aminoglycoside Consult 1 EACH MC ONE (12:47)
[2018-06-10] MEDS ORDERED: *HR* Dextrose 50 % in Water (Syg) 50 ML SYRINGE IVP PRN (13:48)
[2018-06-10] MEDS ORDERED: Dextrose Gel 15 GM/37.5 ML TUBE PO PRN ×2 (13:48)
[2018-06-10] MEDS ORDERED: D5% in Water 1,000 ML IVC PRN (13:48)
[2018-06-10] MEDS: Nicotine 21 MG PATCH.TD24 TD SCH (15:38)
[2018-06-10] MEDS: traZODone 50 MG TABLET PO SCH (20:15)
[2018-06-10] MEDS: *HR* OxyCODONE/APAP 5/325 TABLET PO PRN (20:17)
[2018-06-11] MEDS: Piperacillin/Tazobactam 3.375 GM in 0.9 % Sodium Chloride Mini Bag 100 ML IVPB SCH ×3 (01:16→16:40)
[2018-06-11] MEDS: Ipratropium/Albuterol Neb 3 ML IH SCH ×4 (03:50→20:15)
[2018-06-11] MEDS: *HR* OxyCODONE/APAP 5/325 TABLET PO PRN ×2 (05:05→11:47)
[2018-06-11] MEDS: *HR* Heparin 5,000 UNIT/ML VIAL SQ SCH ×3 (05:05→21:55)
[2018-06-11] MEDS: Gabapentin 100 MG CAPSULE PO SCH ×3 (08:36→21:55)
[2018-06-11] MEDS: Nicotine 21 MG PATCH.TD24 TD SCH (08:37)
[2018-06-11] MEDS: Insulin LISPRO 300 UNITS/3 ML VIAL SQ SCH ×4 (08:37→21:54)
[2018-06-11 08:49] LABS: Estimated Average Glucose 123 mg/dl; Hemoglobin A1C 5.9 %
[2018-06-11 13:14] LABS: Basophils % 0.1 %; Eosinophils # 0.2 K/mcL (0.0-0.6); Eosinophils % 1.3 %; Hematocrit 39.9 % (37.5-50.1); Hemoglobin 13.6 g/dL (12.9-16.9); Immature Granulocytes % 0.4 % (0-4); Lymphocytes # 1.6 K/mcL (0.6-4.6); Mean Corpuscular HGB Conc 34.1 g/dL (31.6-35.5); Mean Corpuscular Volume 90.9 fL (83.0-100.0); Mean Platelet Volume 8.5 fL (9.4-12.4); Monocytes # 1.2 K/mcL (0.0-1.3); Monocytes % 7.8 %; Neutrophils # 12.6 K/mcL (1.6-8.9); Platelet Count 239 K/mcL (140-400); Red Blood Count 4.39 M/mcL (4.19-5.50); Red Cell Distribution Width 13.1 % (11.5-14.5); Segmented Neutrophils % 80.4 %
--- NOTE | 2018-06-11 14:08 | Internal Med Progress Note ---
Hospitalist Progress Note - Encounter Date of Encounter: 06/11/18 Time of Encounter: 11:40 - Subjective Interval History: Mr. Bailon is a 52 y/o M hx of COPD, HARJEET, Morbid obesity, tobacco dependence and CAD pt admitted here for acute pneumonia. He is still on 3 lit lit O Spo2 @ 92. Denied any CP. Still has moderate SOB and SAHNI. Overall feels better today. Still has nonproductive cough - Exam Vitals: Temp Pulse Resp BP Pulse Ox 97.7 F 75 18 152/79 92 06/11/18 10:15 06/11/18 10:15 06/11/18 10:57 06/11/18 10:15 06/11/18 10:57 Exam: Gen: Alert, awake, Oriented to time,place and person Chest: Diminished breath sounds B/L, No wheezing, No crackles, No rales Heart: S1S2+ RRR No murmurs Abd: Soft, NT, BS +, No organomegaly Ext: No edema, pulses are palpable, No calf tenderness Neuro : Benign findings Skin: No rash. - Assessment and Plan (1) Pneumonia Current Visit: Yes Status: Suspected Assessment and Plan: Mostly bacterial improving continue IV antibiotic Zosyn (2) Acute and chronic respiratory failure with hypoxia Current Visit: Yes Status: Acute Assessment and Plan: Sabrina pneumonia and deconditioning Still on 3 lit oxygen Does use 2 lit at bed time at home continue Duoneb and of broad spectrum abx (3) Chest pain Current Visit: Yes Status: Acute Assessment and Plan: Most likely secondary to pneumonia no further workup needed (4) COPD (chronic obstructive pulmonary disease) Current Visit: Yes Status: Chronic Assessment and Plan: Not in exacerbation duonebs scheduled try to wean him off the oxygen (5) Migraine Current Visit: Yes Status: Chronic Assessment and Plan: Sumatripin prn (6) DVT prophylaxis Current Visit: Yes Status: Acute Assessment and Plan: sq heparin (7) Wound dehiscence, surgical Current Visit: Yes Status: Acute Assessment and Plan: No signs of infection continue local wound care daily (8) Tobacco dependence Current Visit: Yes Status: Acute Assessment and Plan: Counseled to quit smoking placed on nicotine patch - Time Spent with Patient Total time spent is greater than 50% in coordination of care (as documented) at patient's floor/unit and/or counseling patient: Internal Medicine: Result - Labs CBC & Chem 7: 06/11/18 13:02 06/10/18 00:50 Labs: Short CBC 06/11/18 Range/Units 13:02 WBC 15.7 H (4.3-11.1) K/mcL Hgb 13.6 (12.9-16.9) g/dL Hct 39.9 (37.5-50.1) % Plt Count 239 (140-400) K/mcL Neutrophils # 12.6 H (1.6-8.9) K/mcL - ABG Interpretation ABG results: PT/INR, D-dimer PT 14.1 Seconds (9.4-12.1) H 06/09/18 16:29 Consult Discharge Plan - Plan Referrals: Aleena Robles, HENRIETTA [Primary Care Provider] - (1) Pneumonia Qualifiers: Pneumonia type: due to unspecified organism Laterality: right Lung location : lower lobe of lung Qualified Code(s): J18.1 - Lobar pneumonia, unspecified organism (3) Chest pain Qualifiers: Chest pain type: other chest pain Qualified Code(s): R07.89 - Other chest pain; R07.8 - Other chest pain (4) COPD (chronic obstructive pulmonary disease) Qualifiers: COPD type: COPD with acute lower respiratory infection Qualified Code(s): J44.0 - Chronic obstructive pulmonary disease with acute lower respiratory infection (5) Migraine Qualifiers: Migraine type: unspecified (7) Wound dehiscence, surgical Qualifiers: Encounter type: subsequent encounter Qualified Code(s): T81.31XD - Disruption of external operation (surgical) wound, not elsewhere classified, subsequent encounter
--- NOTE | 2018-06-11 15:42 | Electrocardiograph Report ---
[address] [place] [address] Test Date: 2018-06-09 Pat Name: Ryan Bailon Department: [id number] Room: 3A46 Gender: M Showroom Sales Consultant: : 1965 Requested By: Jono Mcleod Order Number: [id number] Reading MD: Micheal Dotson Measurements Intervals [place] Rate: 72 P: 33 IA: 185 QRS: -10 QRSD: 97 T: 24 QT: 410 QTc: 449 Interpretive Statements Sinus rhythm Inferior infarct, old Electronically Signed On 06-11-2018 15:40:26 EDT by Micheal Dotson
[2018-06-11] MEDS: *HR* OxyCODONE/APAP 10/325 TABLET PO PRN (18:24)
[2018-06-11] MEDS: traZODone 50 MG TABLET PO SCH (21:55)
[2018-06-12] MEDS: Piperacillin/Tazobactam 3.375 GM in 0.9 % Sodium Chloride Mini Bag 100 ML IVPB SCH ×3 (00:08→15:50)
[2018-06-12] MEDS: Ipratropium/Albuterol Neb 3 ML IH SCH ×4 (03:48→21:55)
[2018-06-12] MEDS: *HR* OxyCODONE/APAP 10/325 TABLET PO PRN ×3 (04:51→20:17)
[2018-06-12] MEDS: *HR* Heparin 5,000 UNIT/ML VIAL SQ SCH ×3 (04:54→21:00)
[2018-06-12 05:29] LABS: Basophils % 0.2 %; Eosinophils # 0.1 K/mcL (0.0-0.6); Hematocrit 38.1 % (37.5-50.1); Hemoglobin 12.8 g/dL (12.9-16.9); Immature Granulocytes % 0.5 % (0-4); Lymphocytes # 1.3 K/mcL (0.6-4.6); Lymphocytes % 8.7 %; Mean Corpuscular HGB Conc 33.6 g/dL (31.6-35.5); Mean Corpuscular Hemoglobin 30.2 pg (28.0-33.3); Mean Corpuscular Volume 89.9 fL (83.0-100.0); Mean Platelet Volume 8.6 fL (9.4-12.4); Monocytes # 1.2 K/mcL (0.0-1.3); Monocytes % 7.8 %; Platelet Count 246 K/mcL (140-400); Red Blood Count 4.24 M/mcL (4.19-5.50); Red Cell Distribution Width 13.2 % (11.5-14.5); Segmented Neutrophils % 81.8 %
[2018-06-12] MEDS: Nicotine 21 MG PATCH.TD24 TD SCH (08:17)
[2018-06-12] MEDS: Insulin LISPRO 300 UNITS/3 ML VIAL SQ SCH ×4 (08:17→23:29)
[2018-06-12] MEDS: Gabapentin 100 MG CAPSULE PO SCH ×3 (08:18→20:18)
[2018-06-12] MEDS ORDERED: Furosemide 40 MG/4 ML VIAL IVP ONE (14:43)
--- NOTE | 2018-06-12 14:47 | Internal Med Progress Note ---
Hospitalist Progress Note - Encounter Date of Encounter: 06/12/18 Time of Encounter: 14:45 - Subjective Interval History: Mr. Bailon is a 52 y/o M hx of COPD, HARJEET, Morbid obesity, tobacco dependence and CAD pt admitted here for acute pneumonia. He is still on 4 lit lit O Spo2 @ 92. Denied any CP. Still has moderate SOB and SAHNI. Overall feels better today. Still has nonproductive cough - Exam Vitals: Temp Pulse Resp BP Pulse Ox 98.2 F 75 18 140/78 93 06/12/18 10:47 06/12/18 10:47 06/12/18 10:47 06/12/18 10:47 06/12/18 10:47 Exam: Gen: Alert, awake, Oriented to time,place and person Chest: Diminished breath sounds B/L, No wheezing, mild crackles, mild ronchi noticed Heart: S1S2+ RRR No murmurs Abd: Soft, NT, BS +, No organomegaly Ext: No edema, pulses are palpable, No calf tenderness Neuro : Benign findings Skin: No rash. - Assessment and Plan (1) Pneumonia Current Visit: Yes Status: Suspected Assessment and Plan: Mostly bacterial improving continue IV antibiotic Zosyn (2) Acute and chronic respiratory failure with hypoxia Current Visit: Yes Status: Acute Assessment and Plan: Due to pneumonia and deconditioning Today he is on 4 lit oxygen does have mild vascular congestion will get CXR also started him Lasix PRN Does use 2 lit at bed time at home continue Duoneb and of broad spectrum abx (3) Chest pain Current Visit: Yes Status: Acute Assessment and Plan: Most likely secondary to pneumonia no further workup needed (4) COPD (chronic obstructive pulmonary disease) Current Visit: Yes Status: Chronic Assessment and Plan: No wheezing no need of steroids Cont duonebs as scheduled try to wean him off the oxygen (5) Migraine Current Visit: Yes Status: Chronic Assessment and Plan: Sumatriptan prn (6) DVT prophylaxis Current Visit: Yes Status: Acute Assessment and Plan: sq heparin (7) Wound dehiscence, surgical Current Visit: Yes Status: Acute Assessment and Plan: No signs of infection continue local wound care daily (8) Tobacco dependence Current Visit: Yes Status: Acute Assessment and Plan: Counseled to quit smoking placed on nicotine patch - Time Spent with Patient Total time spent is greater than 50% in coordination of care (as documented) at patient's floor/unit and/or counseling patient: Internal Medicine: Result - Labs CBC & Chem 7: 06/12/18 05:12 06/10/18 00:50 Labs: Short CBC 06/12/18 Range/Units 05:12 WBC 14.7 H (4.3-11.1) K/mcL Hgb 12.8 L (12.9-16.9) g/dL Hct 38.1 (37.5-50.1) % Plt Count 246 (140-400) K/mcL Neutrophils # 12.0 H (1.6-8.9) K/mcL - ABG Interpretation ABG results: PT/INR, D-dimer PT 14.1 Seconds (9.4-12.1) H 06/09/18 16:29 Consult Discharge Plan - Plan Referrals: Aleena Robles, PRODUCTION STATISTICAL CLERK [Primary Care Provider] - (1) Pneumonia Qualifiers: Pneumonia type: due to unspecified organism Laterality: right Lung location : lower lobe of lung Qualified Code(s): J18.1 - Lobar pneumonia, unspecified organism (3) Chest pain Qualifiers: Chest pain type: other chest pain Qualified Code(s): R07.89 - Other chest pain; R07.8 - Other chest pain (4) COPD (chronic obstructive pulmonary disease) Qualifiers: COPD type: COPD with acute lower respiratory infection Qualified Code(s): J44.0 - Chronic obstructive pulmonary disease with acute lower respiratory infection (5) Migraine Qualifiers: Migraine type: unspecified (7) Wound dehiscence, surgical Qualifiers: Encounter type: subsequent encounter Qualified Code(s): T81.31XD - Disruption of external operation (surgical) wound, not elsewhere classified, subsequent encounter
[2018-06-12] MEDS: traZODone 50 MG TABLET PO SCH (20:18)
[2018-06-13] MEDS: Piperacillin/Tazobactam 3.375 GM in 0.9 % Sodium Chloride Mini Bag 100 ML IVPB SCH ×2 (01:00→08:50)
[2018-06-13] MEDS: Ipratropium/Albuterol Neb 3 ML IH SCH ×2 (04:04→10:40)
[2018-06-13 05:07] LABS: Basophils % 0.2 %; Eosinophils # 0.3 K/mcL (0.0-0.6); Eosinophils % 2.5 %; Hematocrit 39.9 % (37.5-50.1); Hemoglobin 13.4 g/dL (12.9-16.9); Immature Granulocytes % 0.6 % (0-4); Lymphocytes # 1.7 K/mcL (0.6-4.6); Lymphocytes % 13.9 %; Mean Corpuscular HGB Conc 33.6 g/dL (31.6-35.5); Mean Corpuscular Hemoglobin 30.7 pg (28.0-33.3); Mean Corpuscular Volume 91.3 fL (83.0-100.0); Mean Platelet Volume 8.4 fL (9.4-12.4); Monocytes # 1.5 K/mcL (0.0-1.3); Monocytes % 11.9 %; Neutrophils # 8.9 K/mcL (1.6-8.9); Platelet Count 268 K/mcL (140-400); Red Blood Count 4.37 M/mcL (4.19-5.50); Red Cell Distribution Width 13.2 % (11.5-14.5); Segmented Neutrophils % 70.9 %
[2018-06-13] MEDS: *HR* Heparin 5,000 UNIT/ML VIAL SQ SCH (05:20)
[2018-06-13] MEDS: *HR* OxyCODONE/APAP 10/325 TABLET PO PRN ×2 (05:20→12:15)
[2018-06-13 05:29] LABS: BUN/Creatinine Ratio 15 (6-26); Blood Urea Nitrogen 12 mg/dL (6-20); Calcium 8.9 mg/dL (8.6-10.3); Carbon Dioxide 25 mEq/L (23-29); Chloride 104 mEq/L (98-107); Glucose 109 mg/dL (70-105); Magnesium 2.1 mg/dL (1.6-2.6); Osmolality,Calculated 286 (280-300); Potassium 3.7 mEq/L (3.5-5.1); Sodium 138 mEq/L (136-145); eGFR For Non-African Americans > 60 (> 60)
[2018-06-13 07:21] VITALS: BP 147/83
[2018-06-13] MEDS: Insulin LISPRO 300 UNITS/3 ML VIAL SQ SCH ×2 (07:57→12:15)
[2018-06-13] MEDS: Nicotine 21 MG PATCH.TD24 TD SCH (08:51)
[2018-06-13] MEDS: Gabapentin 100 MG CAPSULE PO SCH (08:52)
[2018-06-13] MEDS ORDERED: Furosemide 40 MG/4 ML VIAL IVP SCH (09:00)
[2018-06-13] MEDS ORDERED: Furosemide 40 MG TABLET PO SCH (09:00)
--- NOTE | 2018-06-13 10:28 | Discharge Summary ---
<Corwin Porter S - Last Filed: 06/13/18 11:48> - NOTES TO OUTPATIENT PROVIDER Notes to Outpatient Provider: Follow up for resolution of symptoms. Follow up on NRT, pt expresses desire to quit. Check on wound dehiscenence. Date of Encounter: 06/13/18 Time of Encounter: 10:25 - Discharge Diagnosis (1) Pneumonia Priority: Primary Status: Suspected Qualifiers: Pneumonia type: due to unspecified organism Laterality: right Lung location: lower lobe of lung Qualified Code(s): J18.1 - Lobar pneumonia, unspecified organism (2) Chest pain Priority: Secondary Status: Acute Qualifiers: Chest pain type: other chest pain Qualified Code(s): R07.89 - Other chest pain; R07.8 - Other chest pain (3) COPD (chronic obstructive pulmonary disease) Priority: Secondary Status: Chronic Qualifiers: COPD type: COPD with acute lower respiratory infection Qualified Code(s): J44.0 - Chronic obstructive pulmonary disease with acute lower respiratory infection (4) Migraine Priority: Secondary Status: Chronic Qualifiers: Migraine type: unspecified Intractability: not intractable Qualified Code (s): G43.909 - Migraine, unspecified, not intractable, without status migrainosus (5) DVT prophylaxis Priority: Secondary Status: Acute (6) Wound dehiscence, surgical Priority: Secondary Status: Acute Qualifiers: Encounter type: subsequent encounter Qualified Code(s): T81.31XD - Disruption of external operation (surgical) wound, not elsewhere classified, subsequent encounter (7) Tobacco dependence Priority: Secondary Status: Chronic (8) Acute and chronic respiratory failure with hypoxia Priority: Secondary Status: Resolved Hospital course: Mr. Bailon is a 52 year old male admitted for right sided chest pain around the ribs. He said it started around 3pm on afternoon while at rest -had sharp pain increasing with breathing -cough is at baseline, but had some musucs production and chest congestion -no fever/chills -no arm or neck raditation -CT chest showed right lower lob pneumonia -he was treated with Zosyn in the hospital x4days -pt was requiring between 2-4L of O2 NC, which was below his baseline. He only uses O2 at night when needed. Of note he was recently at [facility] for SBO and incarcerated hernia. He had part of the bowels removed and removal of hernia. He had wound vac removed 05/03/18. Pt has wound dehiscence and is packing the wound 2x daily with dressing changes. The pt has no new complaints. He is off oxygen this morning, able to speak in full sentences and isn't using accessory mm of inspiration. He will be discharged with Levaquin for 3 more days. Pt is interested in quitting tobacco, will provide NRT for him. And for the mild chest congestion, lasix 20mg PO daily x7days Discharge discussed with: patient Time spent discussing smoking cessation with patient: 3 to 10 minutes - Time Spent with Patient Total time spent providing and/or coordinating discharge services: Less than 30 minutes - Discharge Medications Prescriptions: Furosemide [Lasix] 20 mg PO DAILY 7 Days #7 vial Levofloxacin [Levaquin] 750 mg PO DAILY 3 Days #3 tablet Nicotine Patch [Nicoderm] 21 mg TD DAILY 30 Days #30 patch.[email or web address] Home Medications: Albuterol Sulfate [Ventolin Hfa] 2 puff IH Q4H PRN 06/09/18 [History] Atenolol 100 mg PO DAILY 06/09/18 [History] Atorvastatin Calcium 80 mg PO HS 06/09/18 [History] Docusate Sodium [Stool Softener] 100 mg PO DAILY PRN 06/09/18 [History] Fluticasone/Vilanterol [Breo Ellipta 100-25 Mcg INH] 1 puff IH DAILY 06/09/18 [ History] Gabapentin [Neurontin] 100 mg PO TID 06/09/18 [History] Metformin HCl 500 mg PO BID 06/09/18 [History] Nitroglycerin [Nitrostat] 0.4 mg SL Q5MIN PRN 06/09/18 [History] OxyCODONE Immed Rel [Roxicodone 10 MG] 10 mg PO Q6H PRN 06/09/18 [History] PARoxetine HCl [Paroxetine HCl] 40 mg PO DAILY 06/09/18 [History] traZODone [TraZODone] 50 mg PO HS 06/09/18 [History] Furosemide [Lasix] 20 mg PO DAILY 7 Days #7 vial 06/13/18 [Rx] Levofloxacin [Levaquin] 750 mg PO DAILY 3 Days #3 tablet 06/13/18 [Rx] Nicotine Patch [Nicoderm] 21 mg TD DAILY 30 Days #30 patch.td24 06/13/18 [Rx] Allergies/Adverse Reactions: 3 Allergy/AdvReac Type Severity Reaction Status Date / Time No Known Allergies Allergy Verified 06/09/18 16:26 Date of admission: 06/10/18 04:01 Primary care physician: Aleena Robles CNP Discharging clinician: Corwin Porter Anticipated date of discharge: 06/13/18 - Constitutional Vitals: Temp Pulse Resp BP Pulse Ox 97.9 F 77 16 147/83 93 06/13/18 07:16 06/13/18 07:16 06/13/18 07:16 06/13/18 07:16 06/13/18 07:16 General appearance: Present: mild distress, A&O X 3, obese, answers questions appropriately. Absent: cooperative Exam: Gen: Alert, awake, Oriented to time,place and person, no apperent distress , cooperative with exam Chest: Diminished breath sounds B/L, No wheezing, mild crackles, mild ronchi noticed, not using accessory mm of inspiration Heart: S1S2+ RRR No murmurs, clear to auscultation Abd: Soft, NT, nondisended, obese, no rebound or guarding Ext: No edema, pulses are palpable, No calf tenderness Neuro : no FND Skin: No rash; wound dehiscence of the umbilical region from recent sx, no other noted wounds, no ulcer. - Patient Status Disposition: Home, Self-Care Condition: Fair Functional capacity at discharge: independent ambulation Overall status at discharge: patient is progressing back to baseline - Discharge Instructions Follow Up With: Aleena Robles CNP [Primary Care Provider] - 06/15/18 10:30 am Forms: ED Satisfaction Letter - Diet and Activity Activity: increase activity as tolerated, wear oxygen at night Diet: low fat, low cholesterol <Emerald Alexander - Last Filed: 06/13/18 17:29> Date of Encounter: 06/13/18 - Discharge Diagnosis (1) Pneumonia Status: Suspected Qualifiers: Pneumonia type: due to unspecified organism Laterality: right Lung location: lower lobe of lung Qualified Code(s): J18.1 - Lobar pneumonia, unspecified organism (2) Chest pain Status: Acute Qualifiers: Chest pain type: other chest pain Qualified Code(s): R07.89 - Other chest pain; R07.8 - Other chest pain (3) COPD (chronic obstructive pulmonary disease) Status: Chronic Qualifiers: COPD type: COPD with acute lower respiratory infection Qualified Code(s): J44.0 - Chronic obstructive pulmonary disease with acute lower respiratory infection (4) Migraine Status: Chronic Qualifiers: Migraine type: unspecified Intractability: not intractable Qualified Code (s): G43.909 - Migraine, unspecified, not intractable, without status migrainosus (5) DVT prophylaxis Status: Acute (6) Wound dehiscence, surgical Status: Acute Qualifiers: Encounter type: subsequent encounter Qualified Code(s): T81.31XD - Disruption of external operation (surgical) wound, not elsewhere classified, subsequent encounter (7) Tobacco dependence Status: Chronic (8) Acute and chronic respiratory failure with hypoxia Status: Resolved Hospital course: Mr. Bailon is a 52 year old male - Time Spent with Patient Total time spent providing and/or coordinating discharge services: Date of admission: 06/10/18 04:01 Primary care physician: Aleena Robles CNP - Constitutional Vitals: Temp Pulse Resp BP Pulse Ox 97.9 F 77 16 147/83 88 06/13/18 07:16 06/13/18 07:16 06/13/18 10:40 06/13/18 07:16 06/13/18 10:40 - Attending Attestation I examined this patient and my medical decision-making was reviewed with the Resident Physician Dr. Porter. I agree with the documented findings, disposition and treatment plan as described except to the extent set forth below. Mr. Bailon is a 52 y/o M hx of COPD, HARJEET, Morbid obesity, tobacco dependence and CAD admitted here for acute pneumonia. He was started on IV abx. Patient states he is feeling better and back to baseline. Denied any CP. Gen: A, A, O x 3 Chest: Diminished BS b/l, mild wheezing, no crackles Heart: S1S2+ RRR a/p 1. Acute PNA 2. Acute on chronic hypoxic resp failure ( does use 2 lit at bed time at home ) 3. COPD 4. Chronic tobacco dependence 5. Tobacco dependence switch to PO levofloxacin reviewed chest x-ray from yesterday does show mild vascular congestion so recommended take Lasix 20 mg PO daily for 7 days no need of steroids counseled to quit smoking on nicotine patch medically stable to [place] home today
== END 2018-06-13 12:48 | disposition home or self-care (01) | DRG 139 ==
LOC: EMEROOARM 16:12 → 3ANU 16:12
PROVIDERS: ADMIT Pediatrics; ATTEND Pediatrics